=== PATIENT | female | born 1980 | race African-American/Black ===

== ENCOUNTER 2017-08-06 00:07 | Emergency (ER) | payer SELFPAY ==
[2017-08-06] MEDS ORDERED: Ibuprofen 200 MG TAB ONE (00:34)
[2017-08-06] MEDS ORDERED: Cyclobenzaprine 10 MG TAB ONE (00:34)
== END 2017-08-06 00:35 | disposition home or self-care (01) ==
LOC: NAV ERS 00:07
DX: M54.2 Cervicalgia (principal); V43.52XA Car driver injured in collision with other type car in traffic accident, initial encounter; W22.10XA Striking against or struck by unspecified automobile airbag, initial encounter
CPT/HCPCS: 99283